=== PATIENT | male | born 2000 | race Caucasian/White ===

== ENCOUNTER 2024-06-09 09:17 | Emergency (ER) | payer MEDICAID, OTHER ==
[~2024-06-09] VITALS: Ht 188 cm; Wt 88.7 kg
[2024-06-09 09:24] VITALS: TEMP 97.6
[2024-06-09 10:00] LABS: BASOPHILS % (AUTO) 0.3 % (0-1); EOSINOPHILS % (AUTO) 0.6 % (0-6); HEMATOCRIT 49.5 % (42.0-52.0); HEMOGLOBIN 17.4 g/dl (14.0-17.9); LYMPHOCYTES # (AUTO) 1.2 X10'3 (1.1-4.8); LYMPHOCYTES % (AUTO) 21.2 % (21-51); MEAN CORPUSCULAR HEMOGLOBIN 29.5 PG (27.0-31.0); MEAN CORPUSCULAR HGB CONC 35.2 g/dL (33.0-36.5); MEAN CORPUSCULAR VOLUME 83.6 FL (78-98); MEAN PLATELET VOLUME 9.5 FL (7.4-10.4); MONOCYTES # (AUTO) 0.5 X10'3 (0-0.9); MONOCYTES % (AUTO) 9.8 % (2-12); NEUTROPHILS # (AUTO) 3.8 X10'3 (1.8-7.7); NEUTROPHILS % (AUTO) 68.1 % (42-75); PLATELET COUNT 322 X10'3 (140-440); RED BLOOD COUNT 5.92 X10'6 (4.70-6.10); RED CELL DISTRIBUTION WIDTH 12.7 % (11.5-14.5); WHITE BLOOD COUNT 5.5 X10'3 (4.5-11.0)
[2024-06-09 10:17] LABS: ALANINE AMINOTRANSFERASE 33 U/L (12-78); ALBUMIN 4.5 G/DL (3.4-5.0); ALBUMIN/GLOBULIN RATIO 1.5 (1.1-1.5); ALKALINE PHOSPHATASE 69 IU/L (46-116); ANION GAP 17 (8-16); ASPARTATE AMINO TRANSFERASE 18 U/L (10-37); BILIRUBIN,TOTAL 1.5 MG/DL (0.1-1.0); BLOOD UREA NITROGEN 12 MG/DL (7-18); BUN/CREATININE RATIO 12.5 (10.0-20.0); CALCIUM 9.8 MG/DL (8.5-10.1); CHLORIDE 96 MMOL/L (99-107); CREATININE 0.96 MG/DL (0.60-1.10); GLUCOSE 98 MG/DL (70-104); LIPASE 46 U/L (16-77); POTASSIUM 3.6 MMOL/L (3.5-5.1); SODIUM 135 MMOL/L (135-145); TOTAL CARBON DIOXIDE 21.9 MMOL/L (24-32); TOTAL PROTEIN 7.6 G/DL (6.4-8.2); eCRCL 139 ML/MIN; eGFR > 90 ML/MIN
[2024-06-09] MEDS: normal saline 1000ml 1,000 ML IV ONE (10:50)
[2024-06-09] MEDS: normal saline 1000ml 1,000 ML IV SCH (10:50)
--- NOTE | 2024-06-09 11:05 | Physician Documentation ---
History of Present Illness ~ Chief Complaint: Abdominal Pain w/vomiting Stated Complaint: N/V Time Seen by MD: 09:41 OK to notify your PCP?: Yes Primary Medical Doctor: NONE Mode of Arrival: [facility] 23-year-old male patient came to the emergency room because of vomiting and not able to keep anything down for three weeks. He vapes and he smoked weed but quit smoking weed three weeks ago. HE HAS SORENESS IN THE ABDOMEN FROM REPEATED VOMITING. NO FEVER NO CHILLS. No shortness a breath no chest pain. Medication Reconciliation Allergies: Coded Allergies: No Known Allergies (Unverified , 06/09/24) Scheduled Famotidine (Famotidine), 1 TAB PO Q12H Scheduled PRN Metoclopramide HCl (Reglan), 1 TAB PO Q8H PRN for nausea/vomiting Past Medical History Past Medical History: Extremity Fracture Past Surgical History: no surgical history Alcohol Use: None Drug Use: none Lives with: Mother, Father, Family Lives In: Home Occupation: student, child Review of Systems ROS As stated above in the HPI, otherwise all systems are reviewed and negative. Physical Exam Vital Signs: Temperature: 97.6, Source: Temporal, Heart Rate: 124, Respiratory Rate: 18, BP: 114/93, Pulse Oximetry: 99, Weight: 88.700 Physical Exam Reviewed vital signs and the patient does have sinus tachycardia but the rest of the he no dynamics are okay Const: Not in acute cardiopulmonary distress Head: Atraumatic Eyes: Normal Conjunctiva ENT: Normal External Ears, Nose and Mouth. Dry mucous membranes mucous membranes Neck: Full range of motion. No meningismus Resp: Clear to auscultation bilaterally. Normal work of breathing Cardio: Regular rate and rhythm, no murmurs. Skin well perfused sinus tachy Abd: Soft, non-tender, non-distended. Normal bowel sounds. No rebound or guar ding Skin: No petechiae or rashes. Warm and dry Back: No midline or flank tenderness Ext: No cyanosis, or edema Neuro: Awake and alert Psych: Normal Mood and Affect Progress Results/Orders Results/Orders Orders - MELVIN ERNANDEZ MD General Nursing Order (06/09/24 10:57) Completed Orders - MELVIN ERNANDEZ MD Cbc/Diff (06/09/24 09:28) BMP (06/09/24 09:28) Lipase (06/09/24 09:28) CMP (06/09/24 09:28) Normal Saline 1000ml (Sodium Chloride 10 (06/09/24 10:15) Normal Saline 1000ml (Sodium Chloride 10 (06/09/24 10:40) Metoclopramide Inj (Reglan Inj) (06/09/24 11:00) Diphenhydramine Inj (Benadryl Inj.) (06/09/24 11:00) Ua W/Microscopic, Cult If Ind (06/09/24 12:45) Medications Received in ER Medications (Trade) Dose Ordered Sig/Laci Route PRN Reason Start Time Stop Time Status Last Admin Dose Admin Sodium Chloride 1,000 ml @ 500 mls/hr Q2H IV 06/09/24 10:40 06/09/24 14:19 DC 06/09/24 10:50 500 MLS/HR (Reglan inj) 10 mg ONCE ONCE IV 06/09/24 11:00 06/09/24 11:01 DC 06/09/24 11:06 10 MG (Benadryl inj.) 25 mg ONCE ONCE IV 06/09/24 11:00 06/09/24 11:01 DC 06/09/24 11:06 25 MG Vital Signs 06/09/24 06/09/24 06/09/24 06/09/24 09:24 10:52 11:30 13:31 Temp 97.6 Pulse 124 93 94 Resp 18 16 16 B/P (MAP) 114/93 111/77 (88) 127/98 (108) Pulse Ox 99 98 98 O2 Flow Rate 0 0 06/09/24 14:16 Pulse 89 Resp 16 B/P (MAP) 128/79 Pulse Ox 100 Laboratory Tests Test 06/09/24 09:41 06/09/24 12:45 White Blood Count 5.5 Red Blood Count 5.92 Hemoglobin 17.4 Hematocrit 49.5 Mean Corpuscular Volume 83.6 Mean Corpuscular Hemoglobin 29.5 Mean Corpuscular Hemoglobin Concent 35.2 Red Cell Distribution Width 12.7 Platelet Count 322 Mean Platelet Volume 9.5 Neutrophils (%) (Auto) 68.1 Lymphocytes (%) (Auto) 21.2 Monocytes (%) (Auto) 9.8 Eosinophils (%) (Auto) 0.6 Basophils (%) (Auto) 0.3 Neutrophils # (Auto) 3.8 Lymphocytes # (Auto) 1.2 Monocytes # (Auto) 0.5 Eosinophils # (Auto) 0.0 Basophils # (Auto) 0.0 CBC Comment Sodium Level 135 Potassium Level 3.6 Chloride Level 96 L Carbon Dioxide Level 21.9 L Anion Gap 17 H Blood Urea Nitrogen 12 Creatinine 0.96 Estimated GFR/1.73 m2 > 90 BUN/Creatinine Ratio 12.5 Glucose Level 98 Calcium Level 9.8 Total Bilirubin 1.5 H Aspartate Amino Transf (AST/SGOT) 18 Alanine Aminotransferase (ALT/SGPT) 33 Alkaline Phosphatase 69 Total Protein 7.6 Albumin 4.5 Globulin 3.1 Albumin/Globulin Ratio 1.5 Lipase 46 Chemistry Comments Urine Specimen Description Voided Urine Color Yellow Urine Clarity Clear Urine pH 6.0 Urine Specific [place] >=1.030 Urine Protein Trace Urine Glucose (UA) Negative Urine Ketones >=80 Urine Occult Blood Negative Urine Nitrite Negative Urine Bilirubin Moderate Urine Urobilinogen 0.2 Urine Leukocyte Esterase Negative Urine RBC 0-2 Urine WBC 0-4 Urine Squamous Epithelial Cells Few Urine Uric Acid Crystals Few Urine Bacteria None seen Urine Mucus Moderate Urine Culture Indicated Not ind Volume Urine Centrifuged 10 ml Urine Comment Medical Decision Making Findings During the physical examination, the findings suggestive of acute life- threatening condition such as JVD, tracheal deviation, acidotic breathing, noisy stridorous breath sounds, pulses paradoxus, muffled heart sounds, unequal breath sounds, abdominal rigidity and rebound tenderness, focal neurological deficits, cool clammy skin, severe hypotension, severe tachycardia or bradycardia are absent. The patient is clinically dehydrated. CBC showed WBC 5.5 H and H17.4 and 45.5 platelets 322. (some hemoconcentration noted) Sodium 135 potassium 3.6 chloride 96 bicarb 21.9 BUN 12 creatinine 0.96 and glucose 98. LFT within normal limit. Patient has mild acidosis. After given 2 L of normal saline intravenously patient felt much better. We are giving him metoclopramide with Benadryl and the oral challenge was done and he tolerated the oral challenge. He has also had urine output after 1.5 L . As he is feeling much better the patient is discharged from the emergency room with antiemetics and advised not to use cannabis anymore. DISCLAIMER Inadvertent spelling and grammatical errors,inadvertent senior ux designer errors,syntax errors, grammatical errors, and spelling errors are likely due to EMR/dictation software use and do not reflect on the overall quality of patient care. Note that the electronic time recorded on this note does not necessarily r eflect the actual time of the patient encounter. Departure Disposition: 01 HOME / SELF CARE / HOMELESS Impression: Primary Impression: Vomiting Condition: Stable Discharge Instructions: Nausea and Vomiting, Adult, [id number] Additional Instructions: Thank you so much for visiting [facility] Emergency room. Please ask your nurse or provider if you have questions about your care today and do not leave until all your questions have been answered. Please use any medications given as directed and follow-up with your doctor in the next 1-3 days. You may also use motrin and tylenol as needed for pain unless instructed otherwise by your provider or nurse. Indications for more urgent follow-up have been discussed, but you may return to the Emergency Department at ANY time for any worrisome or worsening symptoms. Is very good that you stopped using cannabis and keep it up with that. Please go slow and easy on your stomach with soup and jello for few days and gradually increased up your diet back to normal. Referrals: NO PRIMARY CARE PROVIDER (PCP) Prescriptions Famotidine (Famotidine) 20 Mg Tablet 1 TAB PO Q12H for 30 Days, #60 TAB 0 Refills Prov: MELVIN ERNANDEZ MD 06/09/24 Metoclopramide HCl (Reglan) 10 Mg Tablet 1 TAB PO Q8H PRN for nausea/vomiting, #40 TAB 0 Refills before food and bedtime Prov: MELVIN ERNANDEZ MD 06/09/24 Education Educated: Patient, Family Educated regarding: diagnosis, treatment, prognosis, need for follow up Signature Scribe Signature: x Attestation: x MELVIN ERNANDEZ MD June 09, 2024 11:05
[2024-06-09] MEDS: metoclopramide 5 mg/ml inj IV ONE (11:06)
[2024-06-09] MEDS: diphenhydrAMINE 50 mg/ml inj IV ONE (11:06)
[2024-06-09 12:58] LABS: BILIRUBIN,URINE MODERATE (Neg); CLARITY,URINE CLEAR (Clear); COLOR,URINE YELLOW (Yellow); GLUCOSE, URINE NEGATIVE (Neg); KETONES,URINE >=80 mg/dl (Neg); LEUKOCYTE ESTERASE ,URINE NEGATIVE (Neg); NITRITES, URINE NEGATIVE (Neg); OCCULT BLOOD,URINE NEGATIVE (Neg); PROTEIN,URINE TRACE mg/dl (Neg); UROBILINOGEN,URINE 0.2 E.U/dL (0.2-1.0)
[2024-06-09 13:12] LABS: UA COLLECTION TYPE VOIDED
[2024-06-09 13:14] LABS: MUCUS STRANDS MODERATE /LPF (Neg)
[2024-06-09 13:15] LABS: SQUAMOUS EPITHELIAL CELL,UR FEW /LPF (FEW)
[2024-06-09 13:16] LABS: RBC,URINE 0-2 /HPF (0-2); WBC,URINE 0-4 /HPF (0-4)
[2024-06-09 13:17] LABS: BACTERIA,URINE NONE SEEN /HPF (Neg); URIC ACID CRYSTALS FEW /HPF (NEGATIVE)
[2024-06-09] MEDS ORDERED: FAMO20TA10 PO (13:54)
[2024-06-09] MEDS ORDERED: METO-292 PO (13:54)
[2024-06-09 14:16] VITALS: BP 128/79; PULSE 89; RESP 16; O2SAT 100
== END 2024-06-09 14:19 | disposition home or self-care (01) ==
LOC: ER 09:17
DX: R11.10 Vomiting, unspecified (principal); Z79.899 Other long term (current) drug therapy
CPT/HCPCS: 36415; 80053; 81001; 83690; 85025; 96361; 96374; 96375; 99284; J1200; J2765; J7030